=== PATIENT | male | born 1950 | race Caucasian/White ===

== ENCOUNTER 2022-08-13 09:45 | Day surgery (SDC) | payer OTHER, BC ==
[~2022-08-13] VITALS: Ht 175.3 cm; Wt 78.3 kg
[~2022-08-13 09:45] MED LIST: AMLO2.5T3 PO; BAYE81TA10 PO; CALC500T38 PO; FINA5TAB2 PO; LISI20TA33 PO; METO1TAB87 PO; RA N1TAB PO; SIMV10TA21 PO; TAMS1CAP17 PO; ceFAZolin SOD 2 GM in IV 1 EA IV ONE
[2022-08-13] MEDS ORDERED: LR 1,000 ML IV SCH (10:50)
[2022-08-13] MEDS ORDERED: SUGAMMADEX SODIUM 500 MG/5 ML VIAL (BRIDION) As Ordered ONE (11:19)
[2022-08-13] MEDS ORDERED: ONDANSETRON 4MG 2ML VIAL As Ordered ONE (11:19)
[2022-08-13] MEDS ORDERED: propofoL 200 MG/20 ML VIAL As Ordered ONE (11:19)
[2022-08-13] MEDS ORDERED: ROCURONIUM BROMIDE 50MG/5ML VIAL As Ordered ONE (11:19)
[2022-08-13] MEDS ORDERED: LIDOCAINE 2% 100MG/5ML SDV (FOR ANES.) As Ordered ONE (11:19)
[2022-08-13] MEDS ORDERED: fentaNYL 100 MCG/2 ML INJECTION As Ordered ONE ×2 (11:25→13:35)
[2022-08-13] MEDS ORDERED: MIDAZOLAM INJ 2MG/2ML VIAL As Ordered ONE (12:18)
[2022-08-13] MEDS ORDERED: ACETAMINOPHEN 1000MG 100ML IV BAG As Ordered ONE (12:42)
[2022-08-13] MEDS ORDERED: FUROSEMIDE 100MG/10ML VIAL As Ordered ONE (13:49)
[2022-08-13] MEDS ORDERED: ONDANSETRON 4MG 2ML VIAL IV PRN (14:20)
[2022-08-13] MEDS ORDERED: fentaNYL 100 MCG/2 ML INJECTION IV PRN (14:20)
[2022-08-13] MEDS ORDERED: oxyCODONE 5MG TAB PO PRN (14:20)
[2022-08-13] MEDS ORDERED: CIPR-249 PO (14:36)
[2022-08-13] MEDS ORDERED: OXYB5TAB10 PO (14:36)
[2022-08-13] MEDS ORDERED: ACETAMINOPHEN TAB 650MG DOSE (2X325MG) PO PRN (15:15)
[2022-08-13] MEDS ORDERED: oxyBUTYnin 5 MG TAB PO PRN (15:15)
[2022-08-13 15:25] VITALS: BP 150/67; TEMP 97.6; O2SAT 96
== END 2022-08-13 15:55 | disposition home or self-care (01) ==
LOC: M SDC 09:45
PROVIDERS: ATTEND Urology
DX: N40.1 Benign prostatic hyperplasia with lower urinary tract symptoms (principal); I10 Essential (primary) hypertension; E78.5 Hyperlipidemia, unspecified; K21.9 Gastro-esophageal reflux disease without esophagitis; J44.9 Chronic obstructive pulmonary disease, unspecified; Z87.891 Personal history of nicotine dependence; Z85.79 Personal history of other malignant neoplasms of lymphoid, hematopoietic and related tissues; Z92.21 Personal history of antineoplastic chemotherapy; Z92.3 Personal history of irradiation; Z79.899 Other long term (current) drug therapy
CPT/HCPCS: 52601; J0131; J0690; J1100; J1940; J2250; J2405; J3010